=== PATIENT | female | born 1985 | race Caucasian/White ===

== ENCOUNTER 2025-01-07 17:40 | Emergency (ER) | payer OTHER ==
[2025-01-07 18:43] VITALS: RESP 18; TEMP 98.7
[2025-01-07 19:11] VITALS: O2SAT 98
--- NOTE | 2025-01-07 19:29 | ERPHSYRPT ---
- History of Present Illness Time Seen by Provider: 01/07/25 19:20 Source: patient, family Exam Limitations: no limitations Patient Subjective Stated Complaint: pt states that she was trying to seperate frozen patties with a knife and cut her hand Triage Nursing Assessment: pt ambulated into the er; pt is axo x4; c/o laceration; pt states 5/10 pain to left hand; laceration measures 1.5 cm laceration to siddiqui left hand in between thumb and index finger; minimal bleeding present; no respiratory distress present; skin PDW; hypertensive Physician History: This is a right handed 39-year-old white female patient who was using a knife to separate frozen hamburger patties when the knife slipped and caused a small skin laceration in the first webspace. Patient is neurovascularly intact and her tendon function is intact. Patient's tetanus status is over 10 years old. The skin laceration site is approximately 0.5 cm in length. It is well-approximated and there is no active bleeding. It is in the palmar aspect of her left hand Timing/Duration: today Quality: painful Severity: mild Location: hands (Left hand palmar aspect first webspace) Possible Causes: other (Accidental skin laceration) Associated Symptoms: denies symptoms Allergies/Adverse Reactions: No Known Drug Allergies Allergy (Unverified 01/07/25 18:31) Home Medications: No Reportable Medications [No Reported Medications] 01/07/25 [History] Hx Tetanus, Diphtheria Vaccination/Date Given: No Hx Influenza Vaccination/Date Given: No Hx Pneumococcal Vaccination/Date Given: No Travel Risk - International Travel Have you traveled outside of the country in past 3 weeks: No - Emerging Infectious Disease Are you exhibiting symptoms associated with any current EIDs: No - Review of Systems Constitutional: No Symptoms Eyes: No Symptoms Ears, Nose, & Throat: No Symptoms Respiratory: No Symptoms Cardiac: No Symptoms Abdominal/Gastrointestinal: No Symptoms Genitourinary Symptoms: No Symptoms Musculoskeletal: Injury Skin: Other (Skin laceration palmar aspect left hand first webspace) Neurological: No Symptoms Psychological: No Symptoms Endocrine: No Symptoms Hematologic/Lymphatic: No Symptoms Immunological/Allergic: No Symptoms All Other Systems: Reviewed and Negative - Past Medical History Pertinent Past Medical History: No - Past Surgical History Past Surgical History: Yes Female Surgical History: Section - Female History Hx Now: No - Social History Smoking Status: Current every day smoker Exposure to second hand smoke: Yes Drug Use: none - Social Determinants of Health Will the patient participate in the screening: Declined to provide - Nursing Vital Signs Nursing Vital Signs: Initial Vital Signs Pulse Rate 92 H 01/07/25 18:32 Blood Pressure 145/87 01/07/25 18:32 O2 Sat by Pulse Oximetry 98 01/07/25 18:32 Pain Scale Pain Intensity 6 - Physical Exam General Appearance: no apparent distress, alert, anxiety Eye Exam: PERRL/EOMI, eyes nml inspection Ears, Nose, Throat Exam: normal ENT inspection, moist mucous membranes Neck Exam: normal inspection, non-tender, supple, full range of motion Respiratory Exam: airway intact, No chest tenderness, No respiratory distress Gastrointestinal/Abdomen Exam: No tenderness Pelvic Exam: not done Rectal Exam: not done Back Exam: normal inspection, normal range of motion, No CVA tenderness, No vertebral tenderness Extremity Exam: normal inspection, normal range of motion, pelvis stable Neurologic Exam: alert, oriented x 3, cooperative, supervisor policy change clerks II-XII nml as tested, nml cerebellar function, nml station & gait, sensation nml Skin Exam: laceration (0.5 cm skin laceration palmar aspect left hand. No active bleeding. No foreign body. Neurovascularly intact. Tendon function intact) SpO2 Interpretation: normal SpO2: 98 O2 Delivery: Room Air Procedures - Laceration/Wound Repair Left Volar Hand Time of Procedure: 19:50 Wound Location: Left, hand (Volar aspect in the region of the first webspace) Wound Length (cm): 0.5 Wound's Depth, Shape: superficial, linear, into subcut Wound Explored: clean (Wound explored to the base in a bloodless field and no foreign body noted) Irrigated: Yes Hibiclens Prep: Yes Wound Repaired With: Steri-strips, Dermabond Progress: 01/07/25 20:05 There were no complications. Patient tolerated the procedure well. - Course Nursing assessment & vital signs reviewed: Yes Ordered Tests: Medication Summary Discontinued Medications Generic Name Dose Route Start Last Admin Trade Name Freq PRN Reason Stop Dose Admin Diphtheria/Tetanus/Acell Pertussis 0.5 ml 01/07/25 19:31 01/07/25 19:37 Tdap --Diph,Pertuss(Acell),Tet Vac/Pf 0.5 Ml Vial IM 01/07/25 19:32 0.5 ml .ONCE ONE Administration Diphtheria/Tetanus/Acell Pertussis Confirm 01/07/25 19:35 Tdap --Diph,Pertuss(Acell),Tet Vac/Pf 0.5 Ml Vial Administered 01/07/25 19:36 Dose 0.5 ml IM .STK-MED ONE Ibuprofen 400 mg 01/07/25 19:33 01/07/25 19:37 Ibuprofen 400 Mg Tablet PO 01/07/25 19:34 400 mg STAT ONE Administration Ibuprofen Confirm 01/07/25 19:35 Ibuprofen 400 Mg Tablet Administered 01/07/25 19:36 Dose 400 mg .ROUTE .STK-MED ONE - Progress Progress: improved Progress Note: 01/07/25 20:05 My medical decision making and the assignment of low complexity of this patient's medical issue today is based on review of the patient's past medical history, review of the patient's medication list, review the patient drug allergy list, history present illness and physical findings on examination. The workup does not necessitate laboratory radiographic studies. Differential diagnosis includes was not limited to skin laceration left hand, contusion left hand, abrasion left hand Counseled pt/family regarding: diagnosis, need for follow-up Medical Desision Making - Independent Historian Additional History obtained from: Spouse - Departure Departure Disposition: Home Clinical Impression: Laceration of skin of left hand Condition: Stable Critical Care Time: No Referrals: CHOCO YAP MD [Primary Care Provider, EMERGENCY MEDICINE] - Follow up/PCP as directed Additional Instructions: Keep the Steri-Strip repair site dry. After 24 hours, as discussed, may rinse the area each day thereafter. Do not scrub the site. Blot dry use a history department chair. Use Tylenol and ibuprofen for pain control. As the Steri-Strips curl up you may trim them with scissors.
[2025-01-07] MEDS ORDERED: MOTRIN 400 MG ONE (19:35)
[2025-01-07] MEDS ORDERED: Adacel Vial IM ONE (19:35)
[2025-01-07] MEDS: MOTRIN 400 MG PO ONE (19:37)
[2025-01-07] MEDS: Adacel Vial IM ONE (19:37)
[2025-01-07 19:42] VITALS: BP 140/110; PULSE 90
== END 2025-01-07 20:00 | disposition home or self-care (01) ==
LOC: ED 17:40
DX: S61.412A Laceration without foreign body of left hand, initial encounter (principal); W26.0XXA Contact with knife, initial encounter; Y93.G1 Activity, food preparation and clean up; Z72.0 Tobacco use; Z23 Encounter for immunization